=== PATIENT | male | born 1955 | race Caucasian/White ===

== ENCOUNTER 2017-10-30 07:30 | Emergency (ER) | payer OTHER ==
[2017-10-30] MEDS: IBUPROFEN 800 MG TAB PO (11:45)
[2017-10-30] MEDS: HYDROCODONE/APAP (5/325) TAB PO (11:45)
[2017-10-30 12:25] LABS: TROPONIN-I < 0.012 ng/ml (0.00-0.12)
== END 2017-10-30 13:37 | disposition home or self-care (01) ==
LOC: E/R 07:30
DX: M94.0 Chondrocostal junction syndrome [Tietze] (principal); I10 Essential (primary) hypertension
CPT/HCPCS: 84484; 93005; 99284-25